=== PATIENT | male | born 1990 | race Two or more races ===

== ENCOUNTER 2019-06-23 22:39 | Emergency (ER) | payer SELFPAY ==
[~2019-06-23] VITALS: Ht 175.3 cm; Wt 66.0 kg
[2019-06-24 01:00] VITALS: BP 148/80
[2019-06-24] MEDS ORDERED: KETOROLAC 60MG/2ML VIAL IM ONE (01:00)
== END 2019-06-24 01:30 | disposition home or self-care (01) ==
LOC: ER 22:39
DX: J06.9 Acute upper respiratory infection, unspecified (principal); R50.81 Fever presenting with conditions classified elsewhere; R51 Headache
CPT/HCPCS: 96372; 99283; J1885